=== PATIENT | male | born 1990 | race Hispanic/Latino ===

== ENCOUNTER 2016-10-11 19:34 | Emergency (ER) | payer SELFPAY ==
[2016-10-11] MEDS ORDERED: Ibuprofen 800 MG TAB ONE (19:49)
[2016-10-11] MEDS ORDERED: AMOXicillin 250 MG CAP ONE (20:29)
== END 2016-10-11 20:30 | disposition home or self-care (01) ==
LOC: NAV ERS 19:34
DX: H60.91 Unspecified otitis externa, right ear (principal)
CPT/HCPCS: 99282